=== PATIENT | male | born 1975 | race Hispanic/Latino ===

== ENCOUNTER 2019-02-22 02:38 | Emergency (ER) | payer MEDICARE, OTHER ==
--- NOTE | 2019-02-22 03:14 | Emergency Department Report ---
ED Abdominal Pain HPI - General Stated Complaint: EMESIS Time Seen by Provider: 02/22/19 03:06 Source: patient Mode of arrival: Stretcher Limitations: No Limitations - History of Present Illness Initial Comments: Mr. Cross is a very pleasant 43-year-old male who presents from [facility] for epigastric abdominal pain and 4 episodes of vomiting. He explained that he became ill after eating meatballs for dinner. Abdominal pain and nausea have since resolved. Now has only mild headache. Mr. Cross is healthy with history of seizure disorder.. He has a history of schizophrenia. He is currently on involuntary hold 1013 protocol for suicidal thoughts. He denies diarrhea or bloody stools. No hx of ulcer or liver dz. No hx of alcohol use. According to documentation from [facility],Medications include Wellbutrin BuSpar Celexa Latuda Zyprexa omeprazole Angel Luis kelley MD Complaint: abdominal pain -: Gradual, This evening Location: epigastric Radiation: none Migration to: no migration Severity: mild Severity scale (0 -10): 0 Quality: aching Consistency: constant Improves With: nothing Worsens With: eating Context: possible food poisoning Associated Symptoms: denies other symptoms, nausea, vomiting - Related Data Allergies Allergy/AdvReac Type Severity Reaction Status Date / Time No Known Allergies Allergy Unverified 02/22/19 03:12 ED Review of Systems ROS: Stated complaint: EMESIS Other details as noted in HPI Comment: All other systems reviewed and negative Constitutional: denies: fever, malaise Gastrointestinal: abdominal pain, nausea. denies: diarrhea, constipation Musculoskeletal: denies: back pain Neurological: headache ED Past Medical Hx - Past Medical History Previous Medical History?: Yes Hx Seizures: Yes Hx Psychiatric Treatment: Yes (schizophrenia) - Social History Smoking Status: Current Every Day Smoker Substance Use Type: None ED Physical Exam - General General appearance: alert, in no apparent distress - Head Head exam: Present: atraumatic, normocephalic - Eye Eye exam: Present: normal appearance - ENT ENT exam: Present: mucous membranes moist - Neck Neck exam: Present: normal inspection, full ROM - Respiratory Respiratory exam: Present: normal lung sounds bilaterally. Absent: respiratory distress, wheezes, rales, rhonchi - Cardiovascular Cardiovascular Exam: Present: regular rate, normal rhythm, normal heart sounds. Absent: systolic murmur, diastolic murmur, rubs, gallop - GI/Abdominal GI/Abdominal exam: Present: soft, normal bowel sounds. Absent: distended, tenderness, guarding, rebound - Rectal Rectal exam: Present: deferred - Extremities Exam Extremities exam: Present: normal inspection - Back Exam Back exam: Present: normal inspection - Neurological Exam Neurological exam: Present: alert, oriented X3 - Psychiatric Psychiatric exam: Present: normal affect, normal mood - Skin Skin exam: Present: warm, dry, intact, normal color. Absent: rash ED Course Vital Signs 02/22/19 02/22/19 03:03 03:11 Temperature 98.3 F Pulse Rate 94 H Respiratory 14 14 Rate Blood Pressure 138/98 [Left] O2 Sat by Pulse 98 98 Oximetry ED Medical Decision Making - Medical Decision Making Mr. Cross presents with epigastric pain and nausea with no indication of GI bleed. No indication of peritonitis or acute inflammatory process. I suspect food poisoning versus dyspepsia. Mild nondescript headache. He is medically cleared to [facility]. I reviewed all labs obtained in the emergency department. All were within normal limits. Critical care attestation.: If time is entered above; I have spent that time in minutes in the direct care of this critically ill patient, excluding procedure time. ED Disposition Clinical Impression: Dyspepsia Disposition: [id number]/TX-[id number] ANOTHER TYPE HLTHCARE Is pt being admited?: No Does the pt Need Aspirin: No Condition: Stable Instructions: Acute Abdominal Pain (ED)
[2019-02-22] MEDS ORDERED: ALUM-MAG HYDROXIDE-SIMETHICONE 200-200-20MG/5ML ORAL LIQD 30 ML PO ONE (03:18)
[2019-02-22] MEDS ORDERED: ACETAMINOPHEN 325 MG TAB PO ONE (03:18)
[2019-02-22 03:53] LABS: Basophils # (Auto) 0.1 K/mm3 (0.0-0.1); Basophils % (Auto) 0.7 % (0.0-1.8); Eosinophils # (Auto) 0.1 K/mm3 (0.0-0.4); Eosinophils % (Auto) 0.8 % (0.0-4.3); Hematocrit 43.1 % (35.5-45.6); Hemoglobin 14.5 gm/dl (11.8-15.2); Lymphocytes # (Auto) 1.4 K/mm3 (1.2-5.4); Lymphocytes % (Auto) 14.9 % (13.4-35.0); Mean Corpuscular HGB Conc 34 % (32-34); Mean Corpuscular Volume 94 fl (84-94); Monocytes % (Auto) 9.9 % (0.0-7.3); Platelet Count 319 K/mm3 (140-440); Red Cell Distribution Width 13.1 % (13.2-15.2)
[2019-02-22 04:24] LABS: Alanine Aminotransferase 10 units/L (7-56); Albumin 4.3 g/dL (3.9-5)
[2019-02-22 04:25] LABS: Bilirubin,Direct < 0.2 mg/dL (0-0.2)
[2019-02-22 04:33] LABS: BUN/Creatinine Ratio 12; Blood Urea Nitrogen 11 mg/dL (9-20); Calcium 9.1 mg/dL (8.4-10.2); Hemolysis Index 7
[2019-02-22 08:32] VITALS: BP 121/89
== END 2019-02-22 04:57 | disposition other institution (70) ==
LOC: ED 02:38
DX: R10.13 Epigastric pain (principal); R11.2 Nausea with vomiting, unspecified; G43.909 Migraine, unspecified, not intractable, without status migrainosus; F20.9 Schizophrenia, unspecified; F17.200 Nicotine dependence, unspecified, uncomplicated
CPT/HCPCS: 36415; 80048; 80076; 83690; 85025; 99284